=== PATIENT | female | born 1960 | race African-American/Black ===

== ENCOUNTER → 2017-02-23 | Outpatient (CLI) | payer OTHER ==
[~2017-02-23] MED LIST: ASCO500T PO; CYCL10TA2 PO; DILT180C29 PO; ESTR0.5T PO; FLUT1DIS IH; LACT1CAP8 PO; MULT-91 PO; PANT40TA5 PO; SPIR25TA3 PO
--- NOTE | 2017-02-24 13:18 | KCIC ---
Bilateral digital screening mammograms with CAD: HISTORY Routine screening. COMPARISON Comparison is made to previous studies dated 02/20/2016 and 02/17/2015. FINDINGS Breast density category B. The skin and nipples show no abnormalities. No abnormal lymph nodes are seen in the axilla. The breast parenchyma shows scattered fibroglandular density. There appears to be a cluster of calcifications developing in the 1 o'clock position anteriorly in the right breast. Recommend further evaluation with coned magnification views in CC and lateral projections. There are no other dominant masses, suspicious calcifications or architectural distortions. IMPRESSION Clustered calcifications appears to be developing in the 1 o'clock position anteriorly in the right breast. Recommend coned magnification views. This study was interpreted with the benefit of Computerized Aided Detection (CAD). Mammography is not 100% sensitive in detecting breast cancer. Therefore, a self breast exam and a clinical breast exam are very important. A negative mammogram does not negate a clinically suspicious finding and should not result in a delay in biopsying a clinically suspicious abnormality. BI-RADS category 0: Incomplete. Additional imaging is recommended. This patient's information has been entered into a reminder system for the patient to be notified with the results of this examination and a target date for her next mammograms. Electronically signed by: Katarzyna Ruiz MD (Feb 24, 2017 13:16:09)
== END | disposition home or self-care (01) ==
LOC: KCIC MAMMO 17:25
PROVIDERS: ATTEND Internal Medicine
DX: Z12.31 Encounter for screening mammogram for malignant neoplasm of breast (principal)
CPT/HCPCS: G0202; 77067

== ENCOUNTER → 2017-02-26 | Outpatient (CLI) | payer OTHER ==
--- NOTE | 2017-02-26 11:08 | RAD ---
DATE: 02/26/2017 EXAM: DIGITAL DIAGNOSTIC RT HISTORY: Suspicious screening study COMPARISON: 02/23/2017 This study was interpreted with the benefit of Computerized Aided Detection (CAD). FINDINGS: Additional magnification views of the right breast confirm the presence of a cluster of microcalcifications in the upper inner quadrant. They are pleomorphic. They extend over an area measuring approximately 5 mm. No layering is evident on the straight mediolateral view. No definite associated mass is seen. IMPRESSION: Suspicious microcalcifications in the upper inner quadrant of the right breast. Stereotactic biopsy is suggested BI-RADS CATEGORY: 4 SUSPICIOUS ABNORMALITY- BIOPSY SHOULD BE CONSIDERED RECOMMENDED FOLLOW-UP: BIO BIOPSY RECOMMENDED Note: The patient was notified of the recommendation for biopsy at the time of the exam. PQRS compliance statement: Patient information was entered into a reminder system with a target due date for the next mammogram. Mammography is a sensitive method for finding small breast cancers, but it does not detect them all and is not a substitute for careful clinical examination. A negative mammogram does not negate a clinically suspicious finding and should not result in delay in biopsying a clinically suspicious abnormality. "Our facility is accredited by the [employer] Mammography [employer]."
== END | disposition home or self-care (01) ==
LOC: KCIC MAMMO 10:13
PROVIDERS: ATTEND Internal Medicine
DX: R92.8 Other abnormal and inconclusive findings on diagnostic imaging of breast (principal)
CPT/HCPCS: G0206; 77065

== ENCOUNTER → 2018-03-01 | Outpatient (CLI) | payer OTHER | END | disposition home or self-care (01) | LOC: KCIC MAMMO 16:56 | DX: Z12.31 Encounter for screening mammogram for malignant neoplasm of breast (principal) | CPT/HCPCS: 77063; 77067 ==

== ENCOUNTER → 2019-03-04 | Outpatient (CLI) | payer OTHER ==
[~2019-03-04] MED LIST changes: +MULT-629 PO; -MULT-91 PO; -SPIR25TA3 PO; +SPIR25TA5 PO
--- NOTE | 2019-03-04 13:07 | KCIC ---
BILATERAL SCREENING MAMMOGRAM, 3-D History: Routine screening. Comparison: Bilateral mammogram 03/01/2018 and dating back to 2014. Technique: MLO and CC digital tomosynthesis (3D) images obtained. Radiologist reviewed these images on dedicated workstation. Findings: Breast Tissue Density B : There are scattered areas of fibroglandular density. There is bilateral retroareolar ductal ectasia. Stable biopsy clip in the inner right breast. Stable tiny nodular asymmetry in the upper outer left breast at mid depth on MLO tomosynthesis images. There are no dominant masses, suspicious microcalcifications, or architectural distortion. IMPRESSION: No mammographic evidence of malignancy. Recommend routine screening. BI-RADS category 2: Benign findings. The images were reviewed with computer-aided detection. Patient information is entered into reminder system with a target due date for the next screening mammogram. Mammography is the most sensitive method for finding small breast cancers, but it does not detect them all and is not a substitute for careful clinical examination. A negative mammogram does not negate a clinically suspicious finding and should not result in delay in biopsying a clinically suspicious abnormality. "Our facility is accredited by the [employer] Mammography [employer]." Electronically signed by: Kapil Meredith MD (03/04/2019 1:04 PM) [id number]
== END | disposition home or self-care (01) ==
LOC: KCIC MAMMO 10:12
PROVIDERS: ATTEND Internal Medicine Geriatric Medicine
DX: Z12.31 Encounter for screening mammogram for malignant neoplasm of breast (principal); N64.89 Other specified disorders of breast
CPT/HCPCS: 77063; 77067

== ENCOUNTER → 2020-04-25 | Outpatient (CLI) | payer OTHER ==
[~2020-04-25] MED LIST changes: -ASCO500T PO; +ASCO500T53 PO; -PANT40TA5 PO; +PANT40TA77 PO
--- NOTE | 2020-04-25 18:53 | KCIC ---
Bilateral digital screening mammograms with 3-D tomosynthesis: Reason for examination: Routine screening. Comparison is made to previous studies dated back to 02/20/2016. Bilateral mammograms in CC and oblique projections were obtained with 2-D imaging and 3-D tomosynthesis imaging on a Siemens Inspiration unit and reviewed on the workstation. Interpretation was made with the benefit of CAD. The skin and nipples show no abnormalities. No abnormal axillary lymph nodes are seen. The breast parenchyma shows scattered fatty and fibroglandular density. (Breast density: Category B.) There are no continues be a small nodule in the upper outer quadrant of the left breast which probably represents a small intramammary lymph node. There are no new Dominant masses, suspicious calcifications or architectural distortion. Benign calcifications are present. Biopsy clip remains present on the right. Impression: No evidence of malignancy. Recommend routine screening. BI-RAD Category 2: Benign. "Our facility is accredited by the [employer] Mammography [employer]." This patient's information has been entered into a reminder system for the patient to be notified with the results of her examination and a target date for the next mammogram. Electronically signed by: Carly Ruiz MD (04/25/2020 6:50 PM) [id number]
== END | disposition home or self-care (01) ==
LOC: KCIC MAMMO 14:52
PROVIDERS: ATTEND Internal Medicine Geriatric Medicine
DX: Z12.31 Encounter for screening mammogram for malignant neoplasm of breast (principal); N64.89 Other specified disorders of breast
CPT/HCPCS: 77063; 77067

== ENCOUNTER → 2021-04-29 | Outpatient (CLI) | payer OTHER ==
--- NOTE | 2021-04-29 16:38 | KCIC ---
INDICATION: Screening for osteopenia/osteoporosis. Postmenopausal evaluation. COMPARISON: None. TECHNIQUE: Bone densitometry was performed through the lumbar spine and proximal femur. IMPRESSION: Lumbar Spine: BMD: 1.26 T-Score: 2.0 Range: Normal. Degenerative changes the spine with mild scoliotic curvature. Proximal Femur: BMD: 0.67 T-Score: -2.2 Range: Lower limits of osteopenic range on border with osteoporosis. World Health Organization Criteria for Bone Density: T-Score: > -1.0: Normal Range < -1.0 to -2.5: Osteopenic Range < -2.5: Osteoporotic Range Electronically signed by: Earl Bermeo MD (04/29/2021 4:36 PM) [id number]
--- NOTE | 2021-04-30 16:21 | KCIC ---
BILATERAL SCREENING MAMMOGRAM, 3-D History: Routine screening. Comparison: Bilateral mammogram April 25, 2020. Technique: MLO and CC digital tomosynthesis (3D) images obtained. Radiologist reviewed these images on dedicated workstation. Findings: Breast Tissue Density B : There are scattered areas of fibroglandular density. There are a few benign calcifications. Stable biopsy clip of the right breast. There are no dominant masses, suspicious microcalcifications or architectural distortion. IMPRESSION: No mammographic evidence of malignancy. Recommend routine screening. BI-RADS category 2: Benign findings. The images were reviewed with computer-aided detection. Patient information is entered into reminder system with a target [facility]. Mammography is the most sensitive method for finding small breast cancers, but it does not detect the m all and is not a substitute for careful clinical examination. A negative mammogram does not negate a clinically suspicious finding and should not result in delay in biopsying a clinically suspicious a bnormality. "Our facility is accredited by the [employer] Mammography Program." Electronically signed by: Kapil Meredith MD (04/30/2021 4:19 PM) [id number]
== END ==
LOC: KCIC MAMMO 14:54
PROVIDERS: ATTEND Family Medicine
DX: Z12.31 Encounter for screening mammogram for malignant neoplasm of breast (principal); Z78.0 Asymptomatic menopausal state
CPT/HCPCS: 77063; 77067; 77080